=== PATIENT | female | born 1990 | race Caucasian/White ===

== ENCOUNTER 2016-10-27 16:00 | Emergency (ER) | payer MEDICARE, OTHER ==
[2016-10-27 16:24] VITALS: BP 115/64
--- NOTE | 2016-10-27 16:50 | UC ---
Skin Complaint HPI - HPI Summary HPI Summary: 26 y/o female presents to the urgent care c/o cyst in the left posterior side of neck for the past 2 days. Pt states she doesn't know if it was an insect bite. but now is red and painful and was draining purulent discharge yesterday. Pain is 10/10 at touch and 3/10 at rest. Pt denies fever, SOB, chest pain, N/V/ D. - History of Current Complaint Chief Complaint: UCSkin Time Seen by Provider: 10/27/16 16:34 Stated Complaint: SKIN COMPLAINT BACK OF NECK Hx Obtained From: Patient, Family/Ore [employer]her - father Hx Last Menstrual Period: 10/19/16 ?: No Onset/Duration: Gradual Onset, Lasting Days, Still Present Skin Exposure Onset/Duration: Days Ago - 2 days Timing: Constant Onset Severity: Mild Current Severity: Moderate Pain Intensity: 10 - at touch Pain Scale Used: 0-10 Numeric Location: Discrete - Left posterior side of neck Character: Swelling, Redness, Raised, Painful Aggravating: Touch Alleviating: Nothing Associated Signs & Symptoms: Positive: Drainage - purulent discharge yesterday. Negative: Fever Related History: Possible Reaction to: Insect - Allergy/Home Medications Allergies/Adverse Reactions: Allergies Allergy/AdvReac Type Severity Reaction Status Date / Time No Known Allergies Allergy Verified 10/27/16 16:15 Review of Systems Constitutional: Negative Skin: Other - cyst in the posterior left side of neck ENT: Negative Respiratory: Negative Cardiovascular: Negative Gastrointestinal: Negative Genitourinary: Negative Motor: Negative Neurovascular: Negative Musculoskeletal: Negative Neurological: Negative Psychological: Negative All Other Systems Reviewed And Are Negative: Yes PMH/Surg Hx/FS Hx/Imm Hx Previously Healthy: Yes - Surgical History Surgical History: Yes Surgery Procedure, Year, and Place: EYE DYSPLACEMENT PROCEDURE. TUBAL LIGATION - Family History Known Family History: Positive: Diabetes - Social History Occupation: Unemployed Lives: With Family Alcohol Use: None Substance Use Type: None Smoking Status (MU): Never Smoked Tobacco Physical Exam Triage Information Reviewed: Yes Appearance: Well-Appearing, No Pain Distress, Well-Nourished Vital Signs: Initial Vital Signs Temp 98.3 F 10/27/16 16:16 Pulse 73 10/27/16 16:16 Resp 17 10/27/16 16:16 BP 115/64 10/27/16 16:16 Pulse Ox 100 10/27/16 16:16 Vital Signs Reviewed: Yes Eye Exam: Normal Eyes: Positive: Conjunctiva Clear - PERRLA, EOMI ENT Exam: Normal ENT: Positive: Normal ENT inspection, Hearing grossly normal, Pharynx normal, TMs normal Dental Exam: Normal Neck exam: Normal Neck: Positive: Supple, Nontender, No Lymphadenopathy Respiratory Exam: Normal Respiratory: Positive: Chest non-tender, Lungs clear, Normal breath sounds Cardiovascular Exam: Normal Cardiovascular: Positive: RRR, No Murmur, Pulses Normal Abdominal Exam: Normal Abdomen Description: Positive: Nontender, No Organomegaly, Soft. Negative: CVA Tenderness (R), CVA Tenderness (L) Bowel Sounds: Positive: Present Musculoskeletal Exam: Normal Musculoskeletal: Positive: Strength Intact, ROM Intact, No Edema Neurological Exam: Normal Psychological Exam: Normal Skin: Positive: Other - left base posterior side of neck with a postular cyst, fluctuant, warm to touch with surrounding erythema and tender to palpation about 1cm x1cm in size Course/Dx - Course Course Of Treatment: 26 y/o female presents to the urgent care c/o cyst in the left posterior side of neck for the past 2 days. Pt states she doesn't know if it was an insect bite. but now is red and painful and was draining purulent discharge yesterday. Pain is 10/10 at touch and 3/10 at rest. Pt denies fever, SOB, chest pain, N/V/D.Hx obtained. Pt with small abscess at the base of the left posterio side of neck. Time out performed and all involved parties agreed to the PT, procedure and laterality. ABSCESS I&D PROCEDURE NOTE: The patient was prepped and draped in usual sterile fashion. Local anesthesia was obtained with 2ml of 1 % Lidocaine w/o epinephrine.The fluctuant center was incised with #11 blade scalpel. A discrete serosanguinous discharge was expressed. The wound was probed for loculated areas and irrigated with normal saline. No need for packing, wound left open. Tripple antibiotic was applied and sterile dressing applied. The patient tolerated the procedure well. Pt Rx Keflex PO, ibuprofen PO and Bacitracin topical cream. Wound culture sent to lab. Pt Advise to keep wound clean and dry and if fever, redness increaes in size despite of antibiotics to go to the ER immediately for further treatment. Pt understood and agreed - Differential Diagnoses - Skin Complaint Differential Diagnoses: Abscess, Cellulitis, Lymphadenitis, MRSA, Tick Born Illness, Urticaria - Diagnoses Provider Diagnoses: 1- Abscess at the base of the left posterior side of neck Discharge - Discharge Plan Condition: Stable Disposition: HOME Prescriptions: Bacitracin OINTMENT* 1 applic TOPICAL TID #1 tube Cephalexin CAP* [Keflex CAP*] 500 mg PO TID #21 cap Ibuprofen TAB* [Motrin TAB* 600 MG] 600 mg PO Q6H PRN #20 tab PRN Reason: Pain Patient Education Materials: Abscess (ED) Referrals: [facility] [Outside] Additional Instructions: 1-Please take full course of antibiotic to avoid resistance. Keep wound clean and dry with a sterile dressing. Apply bacitracin topical as directed 2- F/u wound check up in 2 days with your PCP or at the urgetn care for removal of packing 3-. Take Ibuprofen PO q6-8hrs prn for pain or swelling. 4-If you develop fever or redness despite antibiotic please go to the ER immediately or return to the Urgent care. 5- Wound culture sent to lab, if any abnormal result you will receive a call from us
[2016-10-27] MEDS ORDERED: Lidocaine 1%* 5 ML VIAL INJ ONE (16:53)
== END 2016-10-27 17:50 | disposition home or self-care (01) ==
LOC: UCCORT 16:00
DX: L02.11 Cutaneous abscess of neck (principal)
CPT/HCPCS: 10060; 87070; 87205; 99202; G0463

== ENCOUNTER 2016-10-30 14:41 | Emergency (ER) | payer MEDICARE, OTHER ==
--- NOTE | 2016-10-30 15:07 | UC ---
Progress - Progress Note Progress Note: wound cx is negative. she is on abx. Note states to complete abx course. f/u with pcp.
== END 2016-10-30 17:35 | disposition left against medical advice (07) ==
LOC: UCCORT 14:41
DX: Z48.00 Encounter for change or removal of nonsurgical wound dressing (principal)